=== PATIENT | male | born 1975 | race African-American/Black ===

== ENCOUNTER 2017-01-07 06:04 | Emergency (ER) | payer MEDICAID ==
[~2017-01-07] VITALS: Ht 182.9 cm; Wt 81.8 kg
[~2017-01-07 06:04] MED LIST: ASPI325T2 PO; FURO40TA2 PO; LIP40 PO; METO25TA6 PO; POTA10CA42 PO
[2017-01-07 07:12] LABS: HEMOGLOBIN. 10.1 g/dL (14.0-18.0); MEAN CORPUSCULAR HEMOGLOBIN 22.1 pg (28.0-32.0); MEAN CORPUSCULAR HGB CONC 31.5 g/dL (31.0-37.0); MEAN CORPUSCULAR VOLUME 70.1 fL (80.0-94.0); MEAN PLATELET VOLUME 7.5 fl (7.4-10.4); PLATELET 289 x1000/uL (130-400); RED BLOOD CELL COUNT 4.57 mill/uL (4.7-6.1); RED CELL DISTRIBUTION WIDTH 20.3 % (11.6-14.6)
[2017-01-07 07:19] LABS: DIFFERENTIAL COMMENT 1
[2017-01-07 07:21] LABS: INR 1.4; PROTHROMBIN TIME 14.8 sec
[2017-01-07 07:25] LABS: ALBUMIN 2.8 g/dL (3.4-5.0); ANION GAP 12; CALCIUM 7.9 mg/dL (8.5-10.1); CARBON DIOXIDE 25 mEq/L (21-32); CHLORIDE 104 mEq/L (98-107); INDEX HEMOLYSI 1 (1-3); INDEX ICTERIC 1 (1-4); INDEX LIPEMIC 1 (1-3); UREA NITROGEN BLOOD 38 mg/dL (7-21)
[2017-01-07 07:31] LABS: ALANINE AMINOTRANSFERASE 82 IU/L (13-61); eGFR 43 mL/min (>60)
[2017-01-07 07:32] LABS: NT PRO B-TYPE NATRIURETIC PEP 2705 pg/mL (5-125); TROPONIN I 0.12 ng/mL (0.00-0.04)
[2017-01-07] MEDS ORDERED: MORPHINE SULFATE 4 MG/ML CPJ (NOT FOR IM USE) IV ONE (08:30)
[2017-01-07 08:52] LABS: ANISOCYTOSIS 2+; PLATELET ESTIMATE NORMAL
[2017-01-07 11:03] VITALS: BP 154/93
[2017-01-07] MEDS ORDERED: ENOXAPARIN 40MG/0.4ML SYR SUBCUT SCH (11:45)
[2017-01-07] MEDS ORDERED: ONDANSETRON HCL 4MG/2ML VIAL IV PRN (11:45)
[2017-01-07] MEDS ORDERED: DOCUSATE SODIUM 100MG CAPSULE PO PRN (11:45)
[2017-01-07] MEDS ORDERED: CLONIDINE 0.1MG TABLET PO PRN (11:45)
[2017-01-07] MEDS ORDERED: HYDROCODONE/ACETAMINOPHEN 5/325MG TABLET PO PRN (11:45)
[2017-01-07] MEDS ORDERED: MORPHINE SULFATE 2 MG/ML CPJ (NOT FOR IM USE) IV PRN (11:45)
[2017-01-07] MEDS ORDERED: IPRATROPIUM/ALBUTEROL 0.5-3(2.5)MG/3ML NEB INH PRN (11:45)
[2017-01-07] MEDS ORDERED: MAGNESIUM/ALUMINUM HYDROXIDE/SIMETHICONE 30ML UDC PO PRN (11:45)
[2017-01-08] MEDS ORDERED: ASPIRIN 81MG EC TABLET PO SCH (09:00)
== END 2017-01-07 13:25 | disposition left against medical advice (07) ==
LOC: ER 06:04
DX: I24.9 Acute ischemic heart disease, unspecified (principal); Z79.899 Other long term (current) drug therapy; Z91.041 Radiographic dye allergy status; Z79.82 Long term (current) use of aspirin; F17.200 Nicotine dependence, unspecified, uncomplicated; I42.2 Other hypertrophic cardiomyopathy; R79.89 Other specified abnormal findings of blood chemistry; Z95.0 Presence of cardiac pacemaker; N17.9 Acute kidney failure, unspecified
CPT/HCPCS: 36415; 71010; 80053; 83880; 84484; 85025; 85610; 93005; 96374; 99285; J2270; Z7610

== ENCOUNTER 2017-12-17 14:11 | Inpatient (IN) | payer MEDICAID ==
[~2017-12-17] VITALS: Ht 365.8 cm; Wt 81.6 kg
[~2017-12-17 14:11] MED LIST changes: +AMI2 PO; +AMIO100T4 PO; +ASPI-1160 PO; -ASPI325T2 PO; +COR3 PO; -FURO40TA2 PO; +KDUR20 PO; +LISI2.5T47 PO; -METO25TA6 PO; -POTA10CA42 PO
[2017-12-17] MEDS ORDERED: MORPHINE SULFATE 4 MG/ML CPJ (NOT FOR IM USE) IV ONE (15:45)
[2017-12-17] MEDS ORDERED: ASPIRIN 81MG TABLET PO ONE (15:45)
[2017-12-17] MEDS ORDERED: NITROGLYCERIN OINT 1GM/INCH UDPKT TD ONE (15:45)
[2017-12-17 16:07] LABS: BASOPHILS % 1.9 % (0.0-2.0); EOSINOPHILS % 3.5 % (0.0-5.0); HEMATOCRIT. 34.9 % (42.0-52.0); HEMOGLOBIN. 10.9 g/dL (14.0-18.0); LYMPHOCYTES % 20.1 % (20.0-50.0); MEAN CORPUSCULAR HEMOGLOBIN 23.5 pg (28.0-32.0); MEAN CORPUSCULAR VOLUME 75.3 fL (80.0-94.0); MEAN PLATELET VOLUME 7.3 fl (7.4-10.4); MONOCYTES % 12.2 % (2.0-8.0); NEUTROPHILS % 62.3 % (40.0-76.0); PLATELET 262 x1000/uL (130-400); RED BLOOD CELL COUNT 4.64 mill/uL (4.7-6.1); RED CELL DISTRIBUTION WIDTH 22.1 % (11.6-14.6)
[2017-12-17 16:12] LABS: INR 1.3; PROTHROMBIN TIME 13.6 sec (9.4-11.6)
[2017-12-17 16:17] LABS: CHLORIDE 108 mEq/L (98-107)
[2017-12-17 16:22] LABS: TROPONIN I 0.12 ng/mL (0.00-0.04)
[2017-12-17 16:33] LABS: PLATELET ESTIMATE NORMAL
[2017-12-17] MEDS ORDERED: HYDROCODONE/ACETAMINOPHEN 5/325MG TABLET PO PRN ×2 (21:00→23:15)
[2017-12-17 23:00] VITALS: BP 137/102
[2017-12-17] MEDS ORDERED: ONDANSETRON HCL 4MG/2ML VIAL IV PRN (23:15)
[2017-12-17] MEDS ORDERED: IPRATROPIUM/ALBUTEROL 0.5-3(2.5)MG/3ML NEB INH PRN (23:15)
[2017-12-17] MEDS ORDERED: CLONIDINE 0.1MG TABLET PO PRN (23:15)
[2017-12-17] MEDS ORDERED: ACETAMINOPHEN 325MG TABLET PO PRN (23:15)
[2017-12-17] MEDS ORDERED: MAGNESIUM/ALUMINUM HYDROXIDE/SIMETHICONE 30ML UDC PO PRN (23:15)
[2017-12-17] MEDS ORDERED: DOCUSATE SODIUM 100MG CAPSULE PO PRN (23:15)
[2017-12-17 23:43] VITALS: BP 137/102
[2017-12-18] MEDS ORDERED: FUROSEMIDE 40MG/4ML VIAL IVP SCH (07:30)
[2017-12-18] MEDS ORDERED: AMLODIPINE 5MG TABLET PO SCH (09:00)
[2017-12-18] MEDS ORDERED: ENOXAPARIN 40MG/0.4ML SYR SUBCUT SCH (09:00)
[2017-12-18] MEDS ORDERED: ASPIRIN 81MG EC TABLET PO SCH (09:00)
== END 2017-12-18 01:10 | disposition left against medical advice (07) | DRG 194 ==
LOC: ER 15:12 → 8WST 17:34 → CANRESERV 20:54 → ENRESERV 20:54
PROVIDERS: ADMIT Internal Medicine; ATTEND Internal Medicine
DX: I11.0 Hypertensive heart disease with heart failure (principal); E44.0 Moderate protein-calorie malnutrition; Z95.1 Presence of aortocoronary bypass graft; I25.2 Old myocardial infarction; I50.43 Acute on chronic combined systolic (congestive) and diastolic (congestive) heart failure; Z53.21 Procedure and treatment not carried out due to patient leaving prior to being seen by health care provider; I25.10 Atherosclerotic heart disease of native coronary artery without angina pectoris; Z86.73 Personal history of transient ischemic attack (TIA), and cerebral infarction without residual deficits; Z82.49 Family history of ischemic heart disease and other diseases of the circulatory system; Z87.891 Personal history of nicotine dependence; Z95.0 Presence of cardiac pacemaker; Z79.899 Other long term (current) drug therapy; Z79.82 Long term (current) use of aspirin; Z91.041 Radiographic dye allergy status; M94.0 Chondrocostal junction syndrome [Tietze]
CPT/HCPCS: 36415; 71045; 80053; 83880; 84484; 85025; 85610; 93005; 96374; 99285; J2270

== ENCOUNTER 2018-01-07 04:13 | Emergency (ER) | payer MEDICAID ==
[~2018-01-07] VITALS: Ht 182.9 cm; Wt 82.0 kg
[2018-01-07] MEDS ORDERED: ASPIRIN 81MG TABLET PO ONE (06:00)
[2018-01-07] MEDS ORDERED: METOPROLOL TARTRATE 5MG/5ML VIAL IV ONE (06:00)
[2018-01-07] MEDS ORDERED: NITROGLYCERIN OINT 1GM/INCH UDPKT TD ONE (06:00)
[2018-01-07 06:18] LABS: BASOPHILS % 0.1 % (0.0-2.0); EOSINOPHILS % 1.9 % (0.0-5.0); HEMATOCRIT. 37.4 % (42.0-52.0); HEMOGLOBIN. 12.2 g/dL (14.0-18.0); LYMPHOCYTES % 27.4 % (20.0-50.0); MEAN CORPUSCULAR HEMOGLOBIN 24.4 pg (28.0-32.0); MEAN PLATELET VOLUME 7.4 fl (7.4-10.4); MONOCYTES % 13.9 % (2.0-8.0); NEUTROPHILS % 56.7 % (40.0-76.0); PLATELET 373 x1000/uL (130-400); RED BLOOD CELL COUNT 4.99 mill/uL (4.7-6.1); RED CELL DISTRIBUTION WIDTH 20.8 % (11.6-14.6)
[2018-01-07 06:26] LABS: INR 1.2; PARTIAL THROMBOPLASTIN TIME 29.1 sec (23.4-31.0)
[2018-01-07 06:29] LABS: CHLORIDE 101 mEq/L (98-107)
[2018-01-07 07:30] VITALS: BP 95/50
== END 2018-01-07 09:36 | disposition left against medical advice (07) ==
LOC: ER 04:13 → ENRESERV 08:52 → CANRESERV 08:52 → ER 09:36 → CANBEDREQ 11:32
DX: R07.2 Precordial pain (principal); R79.1 Abnormal coagulation profile; I50.9 Heart failure, unspecified; I25.10 Atherosclerotic heart disease of native coronary artery without angina pectoris; Z79.82 Long term (current) use of aspirin; Z87.891 Personal history of nicotine dependence; Z95.0 Presence of cardiac pacemaker; Z95.1 Presence of aortocoronary bypass graft; Z95.810 Presence of automatic (implantable) cardiac defibrillator; Z88.8 Allergy status to other drugs, medicaments and biological substances
CPT/HCPCS: 36415; 71045; 80053; 83880; 84484; 85025; 85610; 85730; 93005; 96374; 99285; J3490; Z7610

== ENCOUNTER 2018-08-22 09:54 | Inpatient (IN) | payer MEDICAID ==
[~2018-08-22] VITALS: Ht 170.2 cm; Wt 81.6 kg
[~2018-08-22 09:54] MED LIST changes: -AMIO100T4 PO; -ASPI-1160 PO; +ASPI-986 PO; +ATOR10TA69 PO; -COR3 PO; +FERR-71 PO; +FOLI-43 PO; +FURO80TA87 PO; -KDUR20 PO; -LIP40 PO; -LISI2.5T47 PO; +METO-385 PO; +MULT-382 PO; +POTA10TA15 PO
[2018-08-22] MEDS ORDERED: ASPIRIN 81MG TABLET PO ONE (10:30)
[2018-08-22] MEDS ORDERED: NITROGLYCERIN 0.4MG TABLET SL SL PRN (10:30)
[2018-08-22 11:19] LABS: BASOPHILS % 2.7 % (0.0-2.0); EOSINOPHILS % 3.3 % (0.0-5.0); HEMATOCRIT. 34.6 % (42.0-52.0); HEMOGLOBIN. 10.7 g/dL (14.0-18.0); LYMPHOCYTES % 21.6 % (20.0-50.0); MEAN CORPUSCULAR HEMOGLOBIN 22.2 pg (28.0-32.0); MEAN CORPUSCULAR VOLUME 71.8 fL (80.0-94.0); MEAN PLATELET VOLUME 7.4 fl (7.4-10.4); MONOCYTES % 14.3 % (2.0-8.0); NEUTROPHILS % 58.1 % (40.0-76.0); PLATELET 296 x1000/uL (130-400); RED BLOOD CELL COUNT 4.82 mill/uL (4.7-6.1); RED CELL DISTRIBUTION WIDTH 22.7 % (11.6-14.6)
[2018-08-22 11:29] LABS: CHLORIDE 102 mEq/L (98-107)
[2018-08-22] MEDS ORDERED: MORPHINE SULFATE 2 MG/ML CPJ (NOT FOR IM USE) IV ONE (11:45)
[2018-08-22] MEDS ORDERED: FUROSEMIDE 20MG/2ML VIAL IVP ONE (11:45)
[2018-08-22 12:07] LABS: PLATELET ESTIMATE NORMAL
[2018-08-22] MEDS ORDERED: ONDANSETRON HCL 4MG/2ML INJ IV ONE (12:15)
[2018-08-22] MEDS: MORPHINE SULFATE 4 MG/ML CPJ (NOT FOR IM USE) IV PRN ×2 (15:54→20:29)
[2018-08-22] MEDS: ONDANSETRON HCL 4MG/2ML INJ IV PRN ×2 (15:54→20:29)
[2018-08-22] MEDS ORDERED: FUROSEMIDE 40MG/4ML VIAL IVP NR (16:00)
[2018-08-22 17:45] LABS: CREATINE KINASE MB FRACTION 1.7 ng/mL (0.5-3.6)
[2018-08-22] MEDS: NITROGLYCERIN OINT 1GM/INCH UDPKT TD SCH (23:39)
[2018-08-22] MEDS ORDERED: IPRATROPIUM/ALBUTEROL 0.5-3(2.5)MG/3ML NEB HHN PRN (23:40)
[2018-08-23] MEDS: MORPHINE SULFATE 4 MG/ML CPJ (NOT FOR IM USE) IV PRN ×5 (00:41→22:24)
[2018-08-23 00:48] VITALS: BP 132/72
[2018-08-23 04:00] VITALS: BP 147/62
[2018-08-23] MEDS: NITROGLYCERIN OINT 1GM/INCH UDPKT TD SCH ×3 (06:00→22:00)
[2018-08-23 07:28] LABS: EOSINOPHILS % 7.5 % (0.0-5.0); HEMATOCRIT. 31.3 % (42.0-52.0); HEMOGLOBIN. 9.9 g/dL (14.0-18.0); LYMPHOCYTES % 20.8 % (20.0-50.0); MEAN CORPUSCULAR HEMOGLOBIN 22.7 pg (28.0-32.0); MEAN PLATELET VOLUME 7.7 fl (7.4-10.4); MONOCYTES % 12.9 % (2.0-8.0); NEUTROPHILS % 56.8 % (40.0-76.0); PLATELET 270 x1000/uL (130-400); RED BLOOD CELL COUNT 4.35 mill/uL (4.7-6.1); RED CELL DISTRIBUTION WIDTH 22.6 % (11.6-14.6)
[2018-08-23 08:00] VITALS: BP 119/71
[2018-08-23] MEDS: LOSARTAN POTASSIUM 50 MG TABLET PO SCH (09:00)
[2018-08-23] MEDS: FUROSEMIDE 40MG/4ML VIAL IVP SCH ×2 (11:03→16:22)
[2018-08-23] MEDS: ASPIRIN 81MG TABLET PO SCH (11:04)
[2018-08-23 12:35] VITALS: BP 109/76
[2018-08-23 13:40] LABS: CLARITY URINE CLEAR (CLEAR); COLOR URINE YELLOW (YELLOW); KETONES URINE NEGATIVE (NEGATIVE); LEUKOCYTE ESTERASE URINE NEGATIVE (NEGATIVE); NITRITE URINE NEGATIVE (NEGATIVE); OCCULT BLOOD URINE NEGATIVE (NEGATIVE); PROTEIN URINE NEGATIVE (NEGATIVE); SPECIFIC GRAVITY URINE 1.026 (1.005-1.030); UROBILINOGEN URINE 0.2 E.U./dL (0.2-1.0)
[2018-08-23 13:59] LABS: *AMPHETAMINES SCREEN URINE NEGATIVE (NEGATIVE); *BARBITURATES SCREEN URINE NEGATIVE (NEGATIVE); *BENZODIAZEPINES SCREEN URINE NEGATIVE (NEGATIVE); *COCAINE SCREEN URINE NEGATIVE (NEGATIVE)
[2018-08-23 14:00] LABS: CANNABINOID URINE SCREEN NEGATIVE (NEGATIVE); METHADONE URINE SCREEN NEGATIVE (NEGATIVE); OPIATES URINE SCREEN NEGATIVE (NEGATIVE); PHENCYCLIDINE URINE SCREEN NEGATIVE (NEGATIVE)
[2018-08-23 16:00] VITALS: BP 110/69
[2018-08-23 20:00] VITALS: BP 107/61
[2018-08-24] VITALS: BP 109/68
[2018-08-24 04:00] VITALS: BP 109/68
[2018-08-24] MEDS: NITROGLYCERIN OINT 1GM/INCH UDPKT TD SCH ×2 (06:00→07:53)
[2018-08-24 08:00] VITALS: BP 138/72
[2018-08-24] MEDS: FUROSEMIDE 40MG/4ML VIAL IVP SCH ×2 (08:31→18:40)
[2018-08-24] MEDS: MORPHINE SULFATE 4 MG/ML CPJ (NOT FOR IM USE) IV PRN ×2 (08:31→13:19)
[2018-08-24] MEDS: ASPIRIN 81MG TABLET PO SCH (09:00)
[2018-08-24] MEDS: LOSARTAN POTASSIUM 50 MG TABLET PO SCH (09:00)
[2018-08-24 12:00] VITALS: BP 125/80
[2018-08-24 16:00] VITALS: BP 130/80
[2018-08-24] MEDS ORDERED: ACETAMINOPHEN 325MG TABLET PO PRN (16:00)
[2018-08-24 20:00] VITALS: BP 114/64
[2018-08-25] VITALS: BP 97/53
[2018-08-25 04:00] VITALS: BP 100/82
== END 2018-08-25 06:35 | disposition left against medical advice (07) | DRG 194 ==
LOC: ER 10:36 → 7WST 12:21 → EDBEDREQTM 12:27 → EDBEDREQ 12:27 → ENRESERV 21:07
PROVIDERS: ADMIT Internal Medicine; ATTEND Internal Medicine
DX: I13.0 Hypertensive heart and chronic kidney disease with heart failure and stage 1 through stage 4 chronic kidney disease, or unspecified chronic kidney disease (principal); N17.0 Acute kidney failure with tubular necrosis; J84.9 Interstitial pulmonary disease, unspecified; E44.0 Moderate protein-calorie malnutrition; I08.1 Rheumatic disorders of both mitral and tricuspid valves; I50.23 Acute on chronic systolic (congestive) heart failure; I27.22 Pulmonary hypertension due to left heart disease; I42.0 Dilated cardiomyopathy; K86.1 Other chronic pancreatitis; E78.5 Hyperlipidemia, unspecified; I25.10 Atherosclerotic heart disease of native coronary artery without angina pectoris; D64.9 Anemia, unspecified; I42.1 Obstructive hypertrophic cardiomyopathy; Z53.21 Procedure and treatment not carried out due to patient leaving prior to being seen by health care provider; N18.3 Chronic kidney disease, stage 3 (moderate); Z95.810 Presence of automatic (implantable) cardiac defibrillator; Z95.1 Presence of aortocoronary bypass graft; Z91.19 Patient's noncompliance with other medical treatment and regimen; Z91.041 Radiographic dye allergy status; Z76.5 Malingerer [conscious simulation]; Z87.891 Personal history of nicotine dependence; Z68.28 Body mass index [BMI] 28.0-28.9, adult; Z82.49 Family history of ischemic heart disease and other diseases of the circulatory system; M94.0 Chondrocostal junction syndrome [Tietze]
CPT/HCPCS: 36415; 71045; 80048; 80061; 80305; 82550; 82553; 83880; 84443; 84484; 93005; 93306; 93970; 96374; 96375; 99291; J1940; J2270; J2405

== ENCOUNTER 2018-12-09 19:02 | Emergency (ER) | payer MEDICAID ==
[~2018-12-09] VITALS: Ht 177.8 cm; Wt 87.0 kg
[~2018-12-09 19:02] MED LIST changes: -AMI2 PO; -FERR-71 PO; -FOLI-43 PO
[2018-12-09 22:30] VITALS: BP 125/83
== END 2018-12-10 02:38 | disposition left against medical advice (07) ==
LOC: ER 19:02 → CANBEDREQ 12-10 06:01
DX: R07.89 Other chest pain (principal); I50.9 Heart failure, unspecified; Z95.0 Presence of cardiac pacemaker; Z79.899 Other long term (current) drug therapy; Z79.82 Long term (current) use of aspirin; Z91.041 Radiographic dye allergy status; Z88.8 Allergy status to other drugs, medicaments and biological substances
CPT/HCPCS: 71045; 93005; 99283; Z7610

== ENCOUNTER 2020-01-16 18:46 | Inpatient (IN) | payer MEDICAID ==
[~2020-01-16] VITALS: Ht 182.9 cm; Wt 79.9 kg
[2020-01-16] MEDS ORDERED: lisinopril (19:02)
[2020-01-16] MEDS ORDERED: ASPIRIN 81MG TABLET PO ONE (19:30)
[2020-01-16] MEDS ORDERED: ONDANSETRON HCL 4MG/2ML INJ IV ONE (20:00)
[2020-01-16] MEDS ORDERED: MORPHINE SULFATE 2 MG/ML CPJ (NOT FOR IM USE) IV ONE (20:00)
[2020-01-16 20:16] LABS: BASOPHILS % 1.8 % (0.0-2.0); EOSINOPHILS % 1.4 % (0.0-5.0); HEMATOCRIT. 32.4 % (42.0-52.0); HEMOGLOBIN. 10.5 g/dL (14.0-18.0); LYMPHOCYTES % 12.1 % (20.0-50.0); MEAN CORPUSCULAR HEMOGLOBIN 25.6 pg (28.0-32.0); MEAN PLATELET VOLUME 7.6 fl (7.4-10.4); MONOCYTES % 12.3 % (2.0-8.0); NEUTROPHILS % 72.4 % (40.0-76.0); PLATELET 321 x1000/uL (130-400); RED CELL DISTRIBUTION WIDTH 21.6 % (11.6-14.6)
[2020-01-16 20:20] LABS: CHLORIDE 98 mEq/L (98-107)
[2020-01-16] MEDS ORDERED: FUROSEMIDE 20MG/2ML VIAL IVP ONE (21:00)
[2020-01-16 22:53] VITALS: BP 101/63
[2020-01-17 00:53] VITALS: BP 101/63
[2020-01-17] MEDS ORDERED: KDUR10 PO (01:01)
[2020-01-17] MEDS ORDERED: METO25TA6 MT (01:03)
[2020-01-17] MEDS ORDERED: BUME2TAB8 MT (01:04)
[2020-01-17] MEDS: MORPHINE SULFATE 2 MG/ML CPJ (NOT FOR IM USE) IV PRN ×2 (01:11→06:25)
[2020-01-17] MEDS: HYDROCODONE/ACETAMINOPHEN 5/325MG TABLET PO PRN ×2 (03:49→12:01)
[2020-01-17 04:00] VITALS: BP 117/58
[2020-01-17 06:22] LABS: BASOPHILS % 0.8 % (0.0-2.0); EOSINOPHILS % 2.8 % (0.0-5.0); HEMATOCRIT. 29.4 % (42.0-52.0); HEMOGLOBIN. 9.5 g/dL (14.0-18.0); LYMPHOCYTES % 10.4 % (20.0-50.0); MEAN CORPUSCULAR HEMOGLOBIN 25.7 pg (28.0-32.0); MEAN CORPUSCULAR VOLUME 79.3 fL (80.0-94.0); MEAN PLATELET VOLUME 7.6 fl (7.4-10.4); MONOCYTES % 9.1 % (2.0-8.0); NEUTROPHILS % 76.9 % (40.0-76.0); PLATELET 280 x1000/uL (130-400)
[2020-01-17 08:00] VITALS: BP 113/78
[2020-01-17] MEDS ORDERED: BUMETANIDE 1MG TABLET PO SCH (09:00)
[2020-01-17] MEDS ORDERED: POTASSIUM CHLORIDE 20MEQ TABLET SR PO SCH (09:00)
[2020-01-17] MEDS ORDERED: ENOXAPARIN 40MG/0.4ML SYR SUBCUT SCH (09:00)
[2020-01-17] MEDS ORDERED: METOPROLOL TARTRATE 25MG TABLET PO SCH (09:00)
[2020-01-17] MEDS ORDERED: ASPIRIN 325MG EC TABLET PO SCH (09:00)
[2020-01-17 11:46] LABS: PLATELET ESTIMATE NORMAL
[2020-01-17 11:51] VITALS: BP 127/72
[2020-01-17] MEDS: BUMETANIDE 1MG/4ML VIAL IV SCH ×2 (12:01→16:35)
[2020-01-17] MEDS ORDERED: MORPHINE SULFATE 2 MG/ML CPJ (NOT FOR IM USE) IV PRN (13:45)
[2020-01-17] MEDS ORDERED: MORPHINE SULFATE 2 MG/ML CPJ (NOT FOR IM USE) IV NR (14:15)
[2020-01-17 16:20] VITALS: BP 112/70
[2020-01-17] MEDS: CARVEDILOL 3.125 MG TABLET PO SCH ×2 (16:35→21:00)
[2020-01-17 20:00] VITALS: BP 91/64
[2020-01-17] MEDS ORDERED: ATORVASTATIN CALCIUM 10MG TABLET PO SCH (21:00)
[2020-01-18 04:00] VITALS: BP 113/67
[2020-01-18] MEDS ORDERED: ASPIRIN 81MG EC TABLET PO SCH (09:00)
== END 2020-01-18 07:29 | disposition left against medical advice (07) | DRG 194 ==
LOC: ER 18:46 → EDBEDREQTM 19:41 → EDBEDREQ 19:41 → 5WST 21:08 → EDBEDREQTM 21:10 → EDBEDREQ 21:10 → ENRESERV 21:41
PROVIDERS: ADMIT Internal Medicine; ATTEND Internal Medicine
DX: I13.0 Hypertensive heart and chronic kidney disease with heart failure and stage 1 through stage 4 chronic kidney disease, or unspecified chronic kidney disease (principal); N17.9 Acute kidney failure, unspecified; I27.21 Secondary pulmonary arterial hypertension; E44.1 Mild protein-calorie malnutrition; E87.1 Hypo-osmolality and hyponatremia; I50.23 Acute on chronic systolic (congestive) heart failure; I42.2 Other hypertrophic cardiomyopathy; D64.9 Anemia, unspecified; E78.5 Hyperlipidemia, unspecified; I25.10 Atherosclerotic heart disease of native coronary artery without angina pectoris; K74.60 Unspecified cirrhosis of liver; N18.9 Chronic kidney disease, unspecified; Z86.73 Personal history of transient ischemic attack (TIA), and cerebral infarction without residual deficits; Z87.891 Personal history of nicotine dependence; Z91.19 Patient's noncompliance with other medical treatment and regimen; Z95.1 Presence of aortocoronary bypass graft; Z95.810 Presence of automatic (implantable) cardiac defibrillator; M94.0 Chondrocostal junction syndrome [Tietze]; Z76.5 Malingerer [conscious simulation]; Z82.49 Family history of ischemic heart disease and other diseases of the circulatory system
CPT/HCPCS: 36415; 71045; 80048; 80053; 80061; 83880; 84484; 85025; 93005; 93306; 96374; 96375; 99285; J1650; J1940; J2270; J2405; J3490

== ENCOUNTER 2020-06-10 16:59 | Inpatient (IN) | payer MEDICAID ==
[~2020-06-10] VITALS: Ht 182.9 cm; Wt 79.4 kg
[~2020-06-10 16:59] MED LIST changes: -ATOR10TA69 PO; +BUME2TAB8 MT; -FURO80TA87 PO; +KDUR10 PO; -METO-385 PO; +METO25TA6 MT; -POTA10TA15 PO
[2020-06-10 17:47] LABS: BASOPHILS % 0.1 % (0.0-2.0); EOSINOPHILS % 1.7 % (0.0-5.0); HEMOGLOBIN. 11.3 g/dL (14.0-18.0); LYMPHOCYTES % 9.8 % (20.0-50.0); MEAN CORPUSCULAR HEMOGLOBIN 25.3 pg (28.0-32.0); MEAN CORPUSCULAR VOLUME 78.3 fL (80.0-94.0); MEAN PLATELET VOLUME 7.6 fl (7.4-10.4); MONOCYTES % 8.5 % (2.0-8.0); NEUTROPHILS % 79.9 % (40.0-76.0); PLATELET 295 x1000/uL (130-400); RED BLOOD CELL COUNT 4.47 mill/uL (4.7-6.1); RED CELL DISTRIBUTION WIDTH 24.7 % (11.6-14.6)
[2020-06-10 17:51] LABS: CHLORIDE 100 mEq/L (98-107)
[2020-06-10 17:54] LABS: INR 1.3; PROTHROMBIN TIME 13.8 sec (9.6-11.0)
[2020-06-10] MEDS ORDERED: MORPHINE SULFATE 4 MG/ML CPJ (NOT FOR IM USE) IV ONE ×2 (18:00→18:45)
[2020-06-10] MEDS ORDERED: ASPIRIN 325MG EC TABLET PO ONE (18:00)
[2020-06-10] MEDS ORDERED: ACETAMINOPHEN 325MG TABLET PO ONE (18:00)
[2020-06-10 19:14] LABS: PHOSPHORUS 3.6 mg/dL (2.5-4.9)
[2020-06-10 23:16] LABS: PLATELET ESTIMATE NORMAL
[2020-06-11] VITALS (8 sets, daily range): BP systolic 98–113; BP diastolic 57–77
[2020-06-11] MEDS: MORPHINE SULFATE 2 MG/ML CPJ (NOT FOR IM USE) IV PRN ×2 (00:59→05:00)
[2020-06-11] MEDS ORDERED: NITROGLYCERIN 0.4MG TABLET SL SL PRN (01:15)
[2020-06-11 07:06] LABS: BASOPHILS % 1.5 % (0.0-2.0); EOSINOPHILS % 2.2 % (0.0-5.0); HEMATOCRIT. 34.7 % (42.0-52.0); HEMOGLOBIN. 10.8 g/dL (14.0-18.0); LYMPHOCYTES % 9.3 % (20.0-50.0); MEAN CORPUSCULAR HEMOGLOBIN 24.8 pg (28.0-32.0); MEAN CORPUSCULAR VOLUME 79.7 fL (80.0-94.0); MEAN PLATELET VOLUME 7.5 fl (7.4-10.4); MONOCYTES % 7.3 % (2.0-8.0); NEUTROPHILS % 79.7 % (40.0-76.0); PLATELET 192 x1000/uL (130-400); RED BLOOD CELL COUNT 4.35 mill/uL (4.7-6.1); RED CELL DISTRIBUTION WIDTH 25.1 % (11.6-14.6)
[2020-06-11 07:29] LABS: CHLORIDE 103 mEq/L (98-107)
[2020-06-11 07:53] LABS: LDL CHOLESTEROL 50 mg/dL (5-100)
[2020-06-11 07:54] LABS: HDL CHOLESTEROL 33 mg/dL (40-59)
[2020-06-11] MEDS ORDERED: METOPROLOL TARTRATE 25MG TABLET PO SCH (09:00)
[2020-06-11] MEDS ORDERED: ASPIRIN 325MG TABLET PO SCH (09:00)
[2020-06-11] MEDS ORDERED: POTASSIUM CHLORIDE 20MEQ TABLET SR PO SCH (09:00)
[2020-06-11] MEDS ORDERED: FURO40TA5 PO (10:35)
[2020-06-11] MEDS ORDERED: FUROSEMIDE 40MG/4ML VIAL IVP SCH (11:45)
[2020-06-11] MEDS ORDERED: KETOROLAC 30MG/ML VIAL IV PRN (11:45)
[2020-06-11] MEDS ORDERED: ENOXAPARIN 40MG/0.4ML SYR SUBCUT SCH (17:00)
[2020-06-11] MEDS: FUROSEMIDE 40MG/4ML VIAL IVP SCH (17:44)
[2020-06-11 19:25] LABS: *AMPHETAMINES SCREEN URINE NEGATIVE (NEGATIVE); *BARBITURATES SCREEN URINE NEGATIVE (NEGATIVE); CANNABINOID URINE SCREEN NEGATIVE (NEGATIVE); METHADONE URINE SCREEN NEGATIVE (NEGATIVE); OPIATES URINE SCREEN NEGATIVE (NEGATIVE); PHENCYCLIDINE URINE SCREEN NEGATIVE (NEGATIVE)
[2020-06-11 19:26] LABS: *BENZODIAZEPINES SCREEN URINE NEGATIVE (NEGATIVE); *COCAINE SCREEN URINE NEGATIVE (NEGATIVE)
[2020-06-11] MEDS ORDERED: ATORVASTATIN CALCIUM 40MG TABLET PO SCH (21:00)
[2020-06-11] MEDS: CARVEDILOL 3.125 MG TABLET PO SCH (21:00)
[2020-06-12] VITALS: BP 108/60
[2020-06-12 04:00] VITALS: BP 107/59
[2020-06-12] MEDS: FUROSEMIDE 40MG/4ML VIAL IVP SCH (06:33)
[2020-06-12 08:00] VITALS: BP 110/66
[2020-06-12] MEDS ORDERED: LOSARTAN POTASSIUM 25 MG TABLET PO SCH (09:00)
[2020-06-12] MEDS: CARVEDILOL 3.125 MG TABLET PO SCH (09:00)
[2020-06-12] MEDS ORDERED: POTASSIUM CHLORIDE 20MEQ TABLET SR PO SCH (09:00)
[2020-06-12] MEDS ORDERED: ASPIRIN 81MG TABLET PO SCH (09:00)
[2020-06-12] MEDS ORDERED: COR3 PO (13:18)
[2020-06-12] MEDS ORDERED: LOSA25TA3 PO (13:18)
[2020-06-12] MEDS ORDERED: BUME2TAB8 MT (13:18)
[2020-06-12] MEDS ORDERED: KDUR10 PO (13:18)
[2020-06-12 14:46] VITALS: BP 110/66
[2020-06-12] MEDS ORDERED: POTASSIUM CHLORIDE 20MEQ TABLET SR PO NR (16:00)
[2020-06-12] MEDS ORDERED: BUMETANIDE 1MG/4ML VIAL IV SCH (17:00)
== END 2020-06-12 14:55 | disposition home or self-care (01) | DRG 194 ==
LOC: ER 16:59 → 5WST 22:51 → EDBEDREQTM 22:52 → EDBEDREQ 22:52 → ENRESERV 23:12
PROVIDERS: ADMIT Internal Medicine; ATTEND Internal Medicine
DX: I11.0 Hypertensive heart disease with heart failure (principal); N17.0 Acute kidney failure with tubular necrosis; I50.23 Acute on chronic systolic (congestive) heart failure; E44.0 Moderate protein-calorie malnutrition; I25.10 Atherosclerotic heart disease of native coronary artery without angina pectoris; K74.60 Unspecified cirrhosis of liver; D64.9 Anemia, unspecified; F17.210 Nicotine dependence, cigarettes, uncomplicated; I42.2 Other hypertrophic cardiomyopathy; E78.5 Hyperlipidemia, unspecified; Z79.82 Long term (current) use of aspirin; Z95.1 Presence of aortocoronary bypass graft; Z95.810 Presence of automatic (implantable) cardiac defibrillator; Z86.73 Personal history of transient ischemic attack (TIA), and cerebral infarction without residual deficits; Z79.899 Other long term (current) drug therapy; Z82.49 Family history of ischemic heart disease and other diseases of the circulatory system; Z91.14 Patient's other noncompliance with medication regimen; Z91.041 Radiographic dye allergy status; Z68.23 Body mass index [BMI] 23.0-23.9, adult; I21.A1 Myocardial infarction type 2
CPT/HCPCS: 36415; 71045; 80048; 80053; 80061; 80305; 83735; 83880; 84100; 84484; 85025; 93005; 96374; 99285; J1650; J1885; J1940; J2270